=== PATIENT | male | born 1980 | race Caucasian/White ===

== ENCOUNTER 2019-04-29 15:34 | Emergency (ER) | payer MEDICAID ==
[~2019-04-29] VITALS: Ht 175.3 cm; Wt 63.6 kg
[2019-04-29 15:57] VITALS: BP 125/78; PULSE 104; TEMP 98.2
[2019-04-29] MEDS ORDERED: CEPHALEXIN500 M1 PO (16:29)
[2019-05-01] MEDS ORDERED: BACTRIM DS 8001 TAB PO (00:35)
== END 2019-04-29 16:44 | disposition home or self-care (01) ==
LOC: COL.ER 15:34
DX: S81.812D Laceration without foreign body, left lower leg, subsequent encounter (principal); L08.9 Local infection of the skin and subcutaneous tissue, unspecified; F17.210 Nicotine dependence, cigarettes, uncomplicated; G40.909 Epilepsy, unspecified, not intractable, without status epilepticus; G35 Multiple sclerosis; X58.XXXD Exposure to other specified factors, subsequent encounter

== ENCOUNTER 2019-05-04 19:03 | Emergency (ER) | payer MEDICAID ==
[~2019-05-04] VITALS: Ht 172.7 cm; Wt 52.3 kg
[~2019-05-04 19:03] MED LIST: BACTRIM DS 8001 TAB PO; CEPHALEXIN500 M1 PO
[2019-05-04 19:09] VITALS: TEMP 98.8
[2019-05-04 19:30] LABS: BASO % 0.3 % (0.0-2.0); GRAN # 6.3 (1.4-6.5); HEMATOCRIT 35.5 % (42.0-52.0); HEMOGLOBIN 12.4 g/dl (13.5-18.0); LYMPH # 0.8 (1.2-3.4); MEAN CELL VOLUME 98 fl (80.0-100.0); MEAN CORPUSCULAR HEMOGLOBIN 34 pg (27.0-31.0); MEAN CORPUSCULAR HGB CONC 35 g/dl (33.0-37.0); MEAN PLATELET VOLUME 10.7 fl (7.4-10.4); MONO # 0.6 (0.1-0.6); MONO % 8.2 % (1.7-9.3); PLATELET COUNT 94 K/mm3 (130-400); RED BLOOD COUNT 3.61 M/mm3 (4.20-5.60); REDCELL DISTRIBUTION WIDTH-CV 13.6 % (11.5-14.5)
[2019-05-04 19:49] LABS: ALANINE AMINOTRANSFERASE 59 U/L (21-72); ALBUMIN 4.6 gm/dL (3.5-5.0); ALKALINE PHOSPHATASE 184 U/L (50-136); ANION GAP 15 mmol/L (7-16); AST,SGOT 182 U/L (15-37); BILIRUBIN,TOTAL 1.7 mg/dL (0.0-1.0); BLOOD UREA NITROGEN 8 mg/dL (9-20); CALCIUM 9.5 mg/dL (8.4-10.2); CARBON DIOXIDE 31 mmol/L (22-30); CREATININE, serum 0.48 (0.66-1.25); GLUCOSE 115 mg/dL (74-106); SODIUM 134 mmol/L (137-145); TOTAL PROTEIN 8.4 gm/dL (6.4-8.2)
[2019-05-04 19:57] LABS: ALCOHOL(ethanol),MEDICAL < 10 mg/dL; CHLORIDE 88 mmol/L (98-107); POTASSIUM 2.9 mmol/L (3.4-5.0)
[2019-05-04 19:58] LABS: COLLECTION METHOD CLEAN CATCH
[2019-05-04 20:05] LABS: MUCOUS Present /lpf; PH 7 (5-8); SQUAMOUS EPITHELIAL 0-2 /hpf; URINE APPEARANCE Hazy; URINE BACTERIA None Seen /hpf; URINE BILIRUBIN Negative (NEGATIVE); URINE BLOOD 1+ (NEGATIVE); URINE COLOR Yellow; URINE GLUCOSE Negative (NEGATIVE); URINE KETONE 1+ (NEGATIVE); URINE LEUKOCYTE ESTERASE Negative (NEGATIVE); URINE NITRATE Negative (NEGATIVE); URINE PROTEIN(semi-quant) 2+ (NEGATIVE)
[2019-05-05 00:10] VITALS: BP 144/103; PULSE 113
== END 2019-05-05 00:10 | disposition short-term general hospital (02) ==
LOC: COL.ER 19:03
PROVIDERS: Family Medicine
DX: G40.909 Epilepsy, unspecified, not intractable, without status epilepticus (principal); G35 Multiple sclerosis; F17.210 Nicotine dependence, cigarettes, uncomplicated
CPT/HCPCS: J1953; J2060; J3411; J7030